=== PATIENT | female | born 1975 | race Asian ===

== ENCOUNTER → 2021-03-01 | Outpatient (CLI) | payer BC | LOC: MC.RAD 13:05 | DX: Z12.31 Encounter for screening mammogram for malignant neoplasm of breast (principal); N64.89 Other specified disorders of breast ==

== ENCOUNTER → 2021-03-08 | Outpatient (CLI) | payer BC | LOC: MC.RAD 08:00 | DX: N63.20 Unspecified lump in the left breast, unspecified quadrant (principal) ==

== ENCOUNTER → 2022-03-04 | Outpatient (CLI) | payer OTHER | LOC: MC.RAD 08:11 | DX: N63.22 Unspecified lump in the left breast, upper inner quadrant (principal) ==

== ENCOUNTER → 2022-03-15 | Outpatient (CLI) | payer OTHER | LOC: MC.RAD 09:29 | DX: N63.20 Unspecified lump in the left breast, unspecified quadrant (principal) ==